=== PATIENT | male | born 1995 | race Hispanic/Latino ===

== ENCOUNTER 2017-05-21 02:09 | Emergency (ER) | payer OTHER ==
[~2017-05-21] VITALS: Ht 160 cm; Wt 53.4 kg
[~2017-05-21 02:09] MED LIST: NO HOME MEDS
[2017-05-21] MEDS ORDERED: CORTISPORIN OTI10 ML AD (02:26)
[2017-05-21 02:58] VITALS: BP 118/83
== END 2017-05-21 02:58 | disposition home or self-care (01) | DRG 156 ==
LOC: ED 02:09
DX: H60.501 Unspecified acute noninfective otitis externa, right ear (principal); H92.01 Otalgia, right ear